=== PATIENT | female | born 1985 | race Caucasian/White ===

== ENCOUNTER 2016-01-31 11:10 | Outpatient (RCR) | payer OTHER ==
[~2016-01-31 11:10] MED LIST: DENAVIR TP; METRONIDAZOLE500 MG PO
[2016-01-31] MEDS ORDERED: LOVENOX100 MG/M1 SQ (11:30)
[2016-01-31] MEDS ORDERED: LOVENOX30 MG/0.1 SQ (11:31)
[2016-01-31] MEDS ORDERED: NOVAPLUS L80 MG/0.8 SC (11:31)
[2016-01-31] MEDS ORDERED: SEPTRA 400 MG-1 TAB PO (11:32)
[2016-01-31] MEDS ORDERED: PERCOCET 325 MG1 TA2 PO (11:32)
[2016-01-31] MEDS ORDERED: AUGMENTIN 875-1 EAC1 PO (11:33)
[2016-01-31 11:40] VITALS: BP 123/75
[2016-02-01 09:40] VITALS: BP 121/72
[2016-02-01] MEDS ORDERED: COUMADIN5 MG PO (09:51)
[2016-02-02 12:20] VITALS: BP 151/99
[2016-02-03 13:52] VITALS: BP 119/66
[2016-02-04 15:14] VITALS: BP 158/77
[2016-02-05 12:53] VITALS: BP 137/76
[2016-02-06 14:35] VITALS: BP 125/83
== END 2016-04-26 14:56 | disposition home or self-care (01) ==
LOC: AMSURD 11:10
DX: I82.402 Acute embolism and thrombosis of unspecified deep veins of left lower extremity (principal)
CPT/HCPCS: J1650

== ENCOUNTER → 2016-06-12 | Outpatient (CLI) | payer OTHER ==
[~2016-06-12] MED LIST changes: +AUGMENTIN 875-1 EAC1 PO; +COUMADIN5 MG PO; +LOVENOX100 MG/M1 SQ; +LOVENOX30 MG/0.1 SQ; +NOVAPLUS L80 MG/0.8 SC; +PERCOCET 325 MG1 TA2 PO; +SEPTRA 400 MG-1 TAB PO
== END ==
LOC: LAB 13:47
DX: I82.402 Acute embolism and thrombosis of unspecified deep veins of left lower extremity (principal)